=== PATIENT | male | born 1970 | race Caucasian/White ===

== ENCOUNTER 2018-03-13 06:26 | Emergency (ER) | payer BC ==
--- NOTE | 2018-03-13 06:41 | Emergency Department Record ---
History of Present Illness - General Chief complaint: Abscess Stated complaint: ABSCESS Time Seen by Provider: 03/13/18 06:35 Source: Patient Mode of Arrival: Ambulatory Limitations: No limitations - History of Present Illness Initial comments: 48 yo male presents with over a week of pain in the glutteal area. The area enlarged then began to have some foul oder drainage. The drainage started on Sunday. He had fevers yesterday. No chills. No pain with bowel movements. He denies any history of similar infections in the past. He denies diabetes. His PCP is Dr Blake in [place]. complaint: Abscess/boil Onset/Timin -: Week(s) Location: Buttocks Severity: Moderate Quality: Aching Consistency: Constant Improves with: None Worsens with: Palpation Associated symptoms: Fever Treatments Prior to Arrival: None - Related Data Home Medications Medication Instructions Recorded Confirmed Last Taken Gabapentin [Neurontin] 300 mg PO BID 03/13/18 03/13/18 Unknown Varenicline Tartrate [Chantix] 1 mg PO DAILY 03/13/18 03/13/18 Unknown Allergies Allergy/AdvReac Type Severity Reaction Status Date / Time No Known Drug Allergies Allergy Verified 03/13/18 06:35 Travel Screening - Travel/Exposure Within Last 30 Days Have you traveled within the last 30 days?: No - Travel/Exposure Within Last Year Have you traveled outside the [place] in the last year?: No - Additonal Travel Details Have you been exposed to anyone with a communicable illness?: No - Travel Symptoms Symptom Screening: None Review of Systems Constitutional: Reports: Fever. Denies: Chills, Malaise, Weakness Eyes: Denies: Eye discharge ENT: Denies: Congestion, Throat pain Respiratory: Denies: Cough, Dyspnea Cardiovascular: Denies: Chest pain, Syncope Endocrine: Denies: Fatigue Gastrointestinal: Denies: Abdominal pain, Diarrhea, Nausea, Vomiting Genitourinary: Denies: Dysuria, Frequency, Hematuria Musculoskeletal: Denies: Arthralgia, Back pain, Myalgia Skin: Denies: Bruising, Change in color, Rash Neurological: Denies: Confusion, Headache Psychiatric: Denies: Anxiety Hematological/Lymphatic: Denies: Easy bleeding, Easy bruising Past Medical History - SOCIAL HISTORY Smoking Status: Current every day smoker Alcohol Use: None Drug Use: None - RESPIRATORY Hx Respiratory Disorders: No - CARDIOVASCULAR Hx Cardio Disorders: No - NEURO Hx Neuro Disorders: No - GI Hx GI Disorders: No - Hx Genitourinary Disorders: No - ENDOCRINE Hx Endocrine Disorders: No - MUSCULOSKELETAL Hx Musculoskeletal Disorders: No - PSYCH Hx Psych Problems: No - HEMATOLOGY/ONCOLOGY Hx Hematology/Oncology Disorders: No Family Medical History Any Significant Family History?: No Physical Exam - General General Appearance: Alert, Oriented x3, Cooperative, No acute distress Limitations: No limitations - Head Head exam: Normal inspection - Eye Eye exam: Normal appearance - ENT ENT exam: Normal exam, Mucous membranes moist Ear exam: Normal external inspection Nasal Exam: Normal inspection Mouth exam: Normal external inspection - Neck Neck exam: Normal inspection - Respiratory Respiratory exam: Normal lung sounds bilaterally - Cardiovascular Cardiovascular Exam: Tachycardia. negative: Regular rate - GI/Abdominal GI/Abdominal exam: Soft. negative: Tenderness - Rectal Rectal exam: Other (Anus is non tender, on the right buttocks approximately 5cm from the anus is a tender swollen draining area). negative: Normal inspection - exam: Normal inspection. negative: Scrotal swelling - Neurological Neurological exam: Alert, Oriented X3 - Psychiatric Psychiatric exam: Normal affect, Normal mood - Skin Skin exam: Erythema Course Vital Signs 03/13/18 06:32 Temperature 98.6 F Pulse Rate [ 120 H Pulse Ox Probe] Respiratory 18 Rate Blood Pressure 123/69 [Left Arm] Pulse Ox 97 - Reevaluation(s) Reevaluation #1: The patient was seen and examined Labs and CT were ordered Unasyn IVPB ordered The case was turned over to Dr Lewis at shift change 03/13/18 07:00 Medical Decision Making - Lab Data Result diagrams: 03/13/18 06:40 03/13/18 06:40 Disposition Disposition: Discharge Clinical Impression: Abscess and cellulitis of gluteal region Disposition: Home, Self-Care Condition: (1) Good Instructions: Abscess (ED) Additional Instructions: Go to Dr. Ramos's office and he will evaluate. Forms: Patient Portal Access Time of Disposition: 21:57 Quality - Quality Measures Quality Measures: N/A - Blood Pressure Screening Does Patient Have Any of the Following: No Blood Pressure Classification: Normal BP Reading Systolic Measurement: 105 Diastolic Measurement: 63 Screening for High Blood Pressure: < Normal BP, F/U Not Required > [G8783]
[2018-03-13] MEDS ORDERED: 0.9 % SODIUM CHLORIDE 1,000 ML BAG IV ONE (06:44)
[2018-03-13] MEDS ORDERED: AMPICILLIN SODIUM/SULBACTAM NA 3 G in 0.9 % SODIUM CHLORIDE 100ML 100 ML IVPB ONE (06:46)
[2018-03-13 06:52] LABS: HEMATOCRIT 42.5 % (42.0-52.0); HEMOGLOBIN 14.4 gm/dl (14.0-18.0); MEAN CELL VOLUME 85.3 fl (81-97); MEAN CORPUSCULAR HEMOGLOBIN 28.9 pg (27-33); MEAN CORPUSCULAR HGB CONC 33.9 g/dl (32-36); PLATELET COUNT 248 K/uL (130-400); RED BLOOD COUNT 4.98 M/uL (4.40-5.70); RED CELL DISTRIBUTION WIDTH 12.6 % (11.5-14.5); WHITE BLOOD COUNT W/O DIFF 16.3 K/uL (4.2-12.2)
[2018-03-13 07:02] LABS: BLOOD UREA NITROGEN 18 mg/dL (6-20); CREATININE 0.8 mg/dL (0.7-1.2); EST GLOMERULAR FILTRATION RATE > 60 mL/min
[2018-03-13 07:04] LABS: GLUCOSE,RANDOM 97 mg/dL (74-109)
[2018-03-13 07:07] LABS: C-REACTIVE PROTEIN 15.02 mg/dL (<0.5)
--- NOTE | 2018-03-13 07:21 | Emergency Department Record ---
History of Present Illness - General Chief complaint: Abscess Stated complaint: ABSCESS Time Seen by Provider: 03/13/18 06:35 Source: Patient Mode of Arrival: Ambulatory Limitations: No limitations - History of Present Illness Initial comments: took over from Dr. Holman at 7 am and patient in CT scanner and report of abscess with some drainage prior to arrival for this abscess and he has had a previous abscess. Patient stated the abscess started draining 4 days ago and became painful about one week ago and he had a similiar abscess 6 months ago and it drained spontaneously and he never saw a medical person that time and this one is in the same spot plus another one. His girlfriend squeezed the abscess last night and got a fair amount of pus out of it. Patient stated he had a fever yesterday and his girlfriend squeezed it and after it drained his fever broke. complaint: Abscess/boil Onset/Timin -: Week(s) Location: Buttocks Severity: Moderate Quality: Aching Consistency: Constant Improves with: None Worsens with: Palpation Associated symptoms: Fever Treatments Prior to Arrival: None - Related Data Home Medications Medication Instructions Recorded Confirmed Last Taken Gabapentin [Neurontin] 300 mg PO BID 03/13/18 03/13/18 Unknown Varenicline Tartrate [Chantix] 1 mg PO DAILY 03/13/18 03/13/18 Unknown Allergies Allergy/AdvReac Type Severity Reaction Status Date / Time No Known Drug Allergies Allergy Verified 03/13/18 06:35 Travel Screening - Travel/Exposure Within Last 30 Days Have you traveled within the last 30 days?: No - Travel/Exposure Within Last Year Have you traveled outside the [place] in the last year?: No - Additonal Travel Details Have you been exposed to anyone with a communicable illness?: No - Travel Symptoms Symptom Screening: None Review of Systems Reviewed: No additional complaints except as noted below Constitutional: Reports: Fever. Denies: Chills, Malaise, Weakness Eyes: Denies: Eye discharge ENT: Denies: Congestion, Throat pain Respiratory: Denies: Cough, Dyspnea Cardiovascular: Denies: Chest pain, Syncope Endocrine: Denies: Fatigue Gastrointestinal: Denies: Abdominal pain, Diarrhea, Nausea, Vomiting Genitourinary: Denies: Dysuria, Frequency, Hematuria Musculoskeletal: Denies: Arthralgia, Back pain, Myalgia Skin: Denies: Bruising, Change in color, Rash Neurological: Denies: Confusion, Headache Psychiatric: Denies: Anxiety Hematological/Lymphatic: Denies: Easy bleeding, Easy bruising Past Medical History - SOCIAL HISTORY Smoking Status: Current every day smoker Alcohol Use: None Drug Use: None - RESPIRATORY Hx Respiratory Disorders: No - CARDIOVASCULAR Hx Cardio Disorders: No - NEURO Hx Neuro Disorders: No - GI Hx GI Disorders: No - Hx Genitourinary Disorders: No - ENDOCRINE Hx Endocrine Disorders: No - MUSCULOSKELETAL Hx Musculoskeletal Disorders: No - PSYCH Hx Psych Problems: No - HEMATOLOGY/ONCOLOGY Hx Hematology/Oncology Disorders: No Family Medical History Any Significant Family History?: No Physical Exam - General General Appearance: Alert, Oriented x3, Cooperative, No acute distress Limitations: No limitations - Head Head exam: Normal inspection - Eye Eye exam: Normal appearance, PERRL Pupils: Normal accommodation - ENT ENT exam: Normal exam, Mucous membranes moist, Normal external ear exam, Normal orophraynx, TM's normal bilaterally Ear exam: Normal external inspection. negative: External canal tenderness Nasal Exam: Normal inspection. negative: Discharge, Sinus tenderness Mouth exam: Normal external inspection, Tongue normal Teeth exam: Normal inspection. negative: Dental caries Throat exam: Normal inspection. negative: Tonsillar erythema, Tonsillar exudate - Neck Neck exam: Normal inspection, Full ROM. negative: Tenderness - Respiratory Respiratory exam: Normal lung sounds bilaterally. negative: Respiratory distress - Cardiovascular Cardiovascular Exam: Regular rate, Normal rhythm, Normal heart sounds - GI/Abdominal GI/Abdominal exam: Soft, Normal bowel sounds. negative: Tenderness - Rectal Rectal exam: Other (abscess draining on the left perirectal area purulent material and when I push on the right sided abscess it drains throught the left sided opening. perirectal abscess) - exam: Deferred - Extremities Extremities exam: Normal inspection, Full ROM, Normal capillary refill. negative: Tenderness - Back Back exam: Reports: Normal inspection, Full ROM. Denies: Muscle spasm, Rash noted, Tenderness - Neurological Neurological exam: Alert, Normal gait, Oriented X3, Reflexes normal - Psychiatric Psychiatric exam: Normal affect, Normal mood - Skin Skin exam: Dry, Intact, Normal color, Warm Course Vital Signs 03/13/18 06:32 Temperature 98.6 F Pulse Rate [ 120 H Pulse Ox Probe] Respiratory 18 Rate Blood Pressure 123/69 [Left Arm] Pulse Ox 97 - Reevaluation(s) Reevaluation #1: discussed case with Dr. Ramos and he wants him sent to his office for further evaluation. 03/13/18 08:32 Medical Decision Making - Data Complexity MDM Data: X-Ray Ordered and/or Reviewed (CT shows an abscess in the right buttock 2 cm by 1.2 cm ) - Lab Data Result diagrams: 03/13/18 06:40 03/13/18 06:40 Lab Results 03/13/18 03/13/18 03/13/18 Range/Units 06:40 06:40 06:40 WBC 16.3 H (4.2-12.2) K/uL RBC 4.98 (4.40-5.70) M/uL Hgb 14.4 (14.0-18.0) gm/dl Hct 42.5 (42.0-52.0) % MCV 85.3 (81-97) fl MCH 28.9 (27-33) pg MCHC 33.9 (32-36) g/dl RDW 12.6 (11.5-14.5) % Plt Count 248 (130-400) K/uL MPV 9.0 (7.4-10.4) fl Neutrophils % 80.0 (47-80) % Band Neutrophils % 0.0 (0-5) % Eosinophils % Not Reportable Basophils % Not Reportable Lymphocytes 9.0 L (16-45) % Monocytes 11.0 H (0-9) % Basophils 0.0 (0-6) % Eosinophil Count 0.0 (0-6) % Sodium 137 (136-145) mmol/L Potassium 4.0 (3.4-4.5) mmol/L Chloride 98 (98-107) mmol/L Carbon Dioxide 25.0 (22-29) mmol/L Anion Gap 14.0 (7-16) BUN 18 (6-20) mg/dL Creatinine 0.8 (0.7-1.2) mg/dL Estimated GFR > 60 mL/min Random Glucose 97 (74-109) mg/dL Lactic Acid Cancelled 1.5 Calcium 9.4 (8.6-10.0) mg/dL C-Reactive Protein 15.02 H (<0.5) mg/dL Disposition Clinical Impression: Abscess and cellulitis of gluteal region Disposition: Home, Self-Care Condition: (1) Good Instructions: Abscess (ED) Additional Instructions: Go to Dr. Ramos's office and he will evaluate. Forms: Patient Portal Access Time of Disposition: 08:34 Quality - Quality Measures Quality Measures: N/A - Blood Pressure Screening Does Patient Have Any of the Following: No Blood Pressure Classification: Normal BP Reading Systolic Measurement: 102 Diastolic Measurement: 53 Screening for High Blood Pressure: < Normal BP, F/U Not Required > [G8783]
[2018-03-13] MEDS ORDERED: TMP/SMZ 160MG/800MG TAB PO ONE (07:49)
--- NOTE | 2018-03-14 07:51 | CT SCAN REPORT ---
EXAM: CT OF THE PELVIS WITH CONTRAST HISTORY: PELVIC PAIN. TECHNIQUE: Sequential axial images were obtained from the iliac crest through the proximal femora after intravenous administration of 100 ml of Omnipaque 300 contrast material. FINDINGS: There is a 2 cm x 1.2 cm hypodensity in the right perianal region. Findings are suspicious for abscess. The urinary bladder appears normal. The prostate gland appears normal. The visualized bowel appears normal. The osseous structures appear normal. IMPRESSION: 2 CM X 1.2 CM RIGHT PERIANAL ABSCESS. THE REMAINDER OF THE EXAMINATION IS UNREMARKABLE. JOB NUMBER: [id number] [facility]
== END 2018-03-13 09:28 | disposition home or self-care (01) ==
LOC: ER 06:26
DX: K61.0 Anal abscess (principal); R50.81 Fever presenting with conditions classified elsewhere; F17.210 Nicotine dependence, cigarettes, uncomplicated
CPT/HCPCS: 72193; 80048; 83605; 85027; 86140; 96365; 99284; J0295; J7030